=== PATIENT | female | born 1985 | race Caucasian/White ===

== ENCOUNTER 2021-06-30 15:07 | Day surgery (SDC) | payer OTHER ==
[~2021-06-30] VITALS: Ht 165.1 cm; Wt 103.2 kg
[2021-06-30 15:24] VITALS: BP 136/91
== END 2021-06-30 19:17 | disposition home or self-care (01) ==
LOC: OR 15:07 → EDBD 17:00 → OR 19:17
PROVIDERS: ATTEND Surgery
DX: D48.61 Neoplasm of uncertain behavior of right breast (principal); D24.2 Benign neoplasm of left breast; E66.9 Obesity, unspecified; Z20.822 Contact with and (suspected) exposure to COVID-19; Z68.37 Body mass index [BMI] 37.0-37.9, adult; Z79.899 Other long term (current) drug therapy
CPT/HCPCS: 19120; 36415; 84703; 88307; C1729; J0690; J2175; J2250; J2405; J2550; J2704; J3010; U0003; U0005